=== PATIENT | female | born 1975 | race Caucasian/White ===

== ENCOUNTER 2017-07-18 21:12 | Emergency (ER) | payer MEDICAID ==
[~2017-07-18] VITALS: Ht 167.6 cm; Wt 99.7 kg
[~2017-07-18 21:12] MED LIST: ALBU1.25 NEB; ASEN10TA9 PO; CYCL-259 PO; DIAZ10TA PO; HYDR50CA PO; IBUP100O23 PO; LORA-445; LORA-446 PO; MOME13HF INH; ONDA4TAB7 PO; PHEN100C PO; QUET50TA5 PO; RANI150C PO; TRIA0.2576 PO; ZOLP-413 PO
[2017-07-18] MEDS ORDERED: SODIUM CHLORIDE 0.9% 1,000ML IVBOLUS ONE (21:30)
[2017-07-18] MEDS ORDERED: PLEASE ENTER HEIGHT AND WEIGHT MC SCH (21:30)
[2017-07-18] MEDS ORDERED: ONDANSETRON 2MG/ML, 2ML IVPush ONE (21:30)
[2017-07-18] MEDS ORDERED: ONDANSETRON 2MG/ML, 2ML ONE (21:32)
[2017-07-18 21:49] LABS: HEMATOCRIT 43.8 % (34.6-47.8); HEMOGLOBIN 14.8 g/dL (11.7-16.4); WHITE BLOOD COUNT 6.6 x10^3/uL (3.4-10)
[2017-07-18 22:01] LABS: BLOOD UREA NITROGEN 10 mg/dL (7-18)
[2017-07-18 22:02] LABS: ASPARTATE AMINO TRANSFERASE 17 U/L (15-37)
[2017-07-18 22:25] LABS: IS PT STATUS REG ER OR PRE ER? YES
[2017-07-18] MEDS ORDERED: KETOROLAC 30 MG/1 ML ONE (22:39)
[2017-07-18] MEDS ORDERED: KETOROLAC 30 MG/1 ML IVPush ONE (23:00)
[2017-07-18 23:18] VITALS: BP 103/55
== END 2017-07-18 23:21 | disposition home or self-care (01) ==
LOC: ED 23:14
DX: R07.89 Other chest pain (principal); R05 Cough; R19.7 Diarrhea, unspecified; J45.909 Unspecified asthma, uncomplicated; F43.10 Post-traumatic stress disorder, unspecified; F31.9 Bipolar disorder, unspecified; Z88.0 Allergy status to penicillin; Z88.1 Allergy status to other antibiotic agents; Z88.2 Allergy status to sulfonamides; Z88.5 Allergy status to narcotic agent; Z88.8 Allergy status to other drugs, medicaments and biological substances; Z91.040 Latex allergy status
CPT/HCPCS: 36415; 71010; 80053; 81003; 83690; 84484; 85025; 93005; 96361; 96374; 96375; 99285; J1885; J2405; J7030

== ENCOUNTER 2018-02-18 20:27 | Emergency (ER) | payer MEDICAID ==
[~2018-02-18] VITALS: Ht 167.6 cm; Wt 103.5 kg
[2018-02-18] MEDS ORDERED: METOCLOPRAMIDE 5 MG/ML, 2ML IVPush ONE (21:00)
[2018-02-18] MEDS ORDERED: DIPHENHYDRAMINE 50 MG/ML, 1ML IVPush ONE (21:00)
[2018-02-18] MEDS ORDERED: KETOROLAC 30 MG/1 ML IVPush ONE (21:00)
[2018-02-18] MEDS ORDERED: SODIUM CHLORIDE FLUSH 10ML SYR IVF ONE (21:00)
[2018-02-18] MEDS ORDERED: ALBU6.7H INH (21:02)
[2018-02-18] MEDS ORDERED: RANI150T4 PO (21:02)
[2018-02-18] MEDS ORDERED: RISP1TAB3 PO (21:02)
[2018-02-18] MEDS ORDERED: CLON2TAB PO (21:02)
[2018-02-18] MEDS ORDERED: FLUR30CA3 PO (21:02)
[2018-02-18] MEDS ORDERED: KETOROLAC 30 MG/1 ML ONE (21:07)
[2018-02-18] MEDS ORDERED: METOCLOPRAMIDE 5 MG/ML, 2ML ONE (21:07)
[2018-02-18] MEDS ORDERED: DIPHENHYDRAMINE 50 MG/ML, 1ML ONE (21:07)
[2018-02-18] MEDS ORDERED: ALBUTEROL/IPRATROPIUM 2.5MG/0.5MG, 3 ML ONE (21:15)
[2018-02-18 21:30] LABS: BASOPHILS # (AUTO) 0.02 x10^3/uL (0-0.1); BASOPHILS % (AUTO) 0 % (0-1); EOSINOPHILS % (AUTO) 0 % (1-7); LYMPHOCYTES # (AUTO) 1.65 x10^3/uL (1-3.4); LYMPHOCYTES % (AUTO) 14 % (22-44); MD NO; MEAN CORPUSCULAR HEMOGLOBIN 29.3 pg (27.0-34.8); MEAN CORPUSCULAR VOLUME 88.8 fL (80-100); MEAN PLATELET VOLUME 9.4 fL (7.4-10.4); MONOCYTES # (AUTO) 1.04 x10^3/uL (0.2-0.8); MONOCYTES % (AUTO) 9 % (2-9); NEUTROPHILS # (AUTO) 9.13 x10^3/uL (1.8-6.8); NEUTROPHILS % (AUTO) 77 % (42-75); PLATELET COUNT 209 x10^3/uL (130-400); RED BLOOD COUNT 4.69 x10^6/uL (3.82-5.3); RED CELL DISTRIBUTION WIDTH 13.4 % (9.6-15.2)
[2018-02-18] MEDS ORDERED: ALBUTEROL/IPRATROPIUM 2.5MG/0.5MG, 3 ML NPPB ONE (21:30)
[2018-02-18 21:38] LABS: INTERNATIONAL NORMALIZED RATIO 0.97 (0.93-1.1)
[2018-02-18] MEDS ORDERED: BENZONATATE 100 MG CAPSULE ONE (21:39)
[2018-02-18 21:42] LABS: ALANINE AMINOTRANSFERASE 21 U/L (12-78); ALBUMIN 3.6 g/dL (3.4-5.0); ANION GAP 7 mmol/L (5-15); CALCIUM 8.8 mg/dL (8.5-10.1); CHLORIDE 109 mmol/L (98-107); CREATININE 0.82 mg/dL (0.55-1.02)
[2018-02-18 21:44] LABS: ALKALINE PHOSPHATASE 61 U/L (45-117); BILIRUBIN,TOTAL 0.2 mg/dL (0.2-1.0); TOTAL PROTEIN 7.2 g/dL (6.4-8.2)
[2018-02-18] MEDS ORDERED: BENZONATATE 100 MG CAPSULE PO ONE (22:00)
[2018-02-18 22:49] VITALS: BP 135/82
== END 2018-02-18 22:49 | disposition home or self-care (01) ==
LOC: ED 21:23
DX: J44.1 Chronic obstructive pulmonary disease with (acute) exacerbation (principal); J18.1 Lobar pneumonia, unspecified organism; F43.10 Post-traumatic stress disorder, unspecified
CPT/HCPCS: 36415; 71045; 80053; 83605; 85025; 85610; 85730; 87040; 93005; 94640; 96374; 96375; 99285; J1200; J1885; J2765; J7620

== ENCOUNTER → 2018-09-22 | Outpatient (CLI) | payer MEDICAID ==
[~2018-09-22] MED LIST changes: +ALBU6.7H INH; +ALPR2TAB2 PO; +CHOL200074 PO; +CLON2TAB PO; +FLUR30CA3 PO; +IBUP-1222 PO; -IBUP100O23 PO; +IBUP100O24 PO; +RANI150T4 PO; +RISP1TAB3 PO; +symbicort INH
== END | disposition home or self-care (01) ==
LOC: STAR 09:19
PROVIDERS: ATTEND Obstetrics & Gynecology Female Pelvic Medicine and Reconstructive Surgery
DX: Z01.818 Encounter for other preprocedural examination (principal); R10.2 Pelvic and perineal pain; N39.3 Stress incontinence (female) (male); N81.10 Cystocele, unspecified; N81.6 Rectocele
CPT/HCPCS: 93005

== ENCOUNTER 2018-09-29 08:26 | Day surgery (SDC) | payer MEDICAID ==
[2018-09-22 10:05] VITALS: BP 129/86
[~2018-09-29] VITALS: Ht 167.6 cm; Wt 103.4 kg
[~2018-09-29 08:26] MED LIST changes: +BUPIVACAINE/PF-EPI 0.25% 1:200K ONE; +NEOMY/POLYMYXIN B GU IRR. 1 ML IRRIG ONE
[2018-09-29] MEDS ORDERED: LACTATED RINGERS 1,000 ML IV SCH (09:18)
[2018-09-29 09:23] VITALS: BP 129/86
[2018-09-29] MEDS ORDERED: LIDOCAINE-MPF 1%, 2ML INFIL ONE (09:30)
[2018-09-29] MEDS ORDERED: FENTANYL PF 250 MCG/5ML ONE (10:02)
[2018-09-29] MEDS ORDERED: MIDAZOLAM 1 MG/ML, 2ML ONE (10:02)
[2018-09-29] MEDS ORDERED: PROPOFOL 10 MG/ML, 20ML ONE (10:47)
[2018-09-29] MEDS ORDERED: CEFAZOLIN 1,000 MG ONE (10:47)
[2018-09-29] MEDS ORDERED: ROCURONIUM 10MG/ML,5ML ONE (10:47)
[2018-09-29] MEDS ORDERED: SUCCINYLCHOLINE 20 MG/ML, 10ML ONE (10:47)
[2018-09-29] MEDS ORDERED: OXYcodone 5 MG/5 ML ORAL.SOL UDC ONE (11:51)
[2018-09-29] MEDS ORDERED: hydrALAzine 20 MG/ML, 1ML IV PRN (12:00)
[2018-09-29] MEDS ORDERED: ONDANSETRON ODT 8 MG PO PRN (12:00)
[2018-09-29] MEDS ORDERED: PROMETHAZINE 12.5 MG SUPP PR PRN (12:00)
[2018-09-29] MEDS ORDERED: FENTANYL PF 100 MCG/2ML IV PRN (12:00)
[2018-09-29] MEDS ORDERED: ONDANSETRON 2MG/ML, 2ML IV PRN (12:00)
[2018-09-29] MEDS ORDERED: OXYcodone 5 MG/5 ML ORAL.SOL UDC PO PRN (12:00)
[2018-09-29] MEDS ORDERED: HYDROmorphone 1 MG/ML, 1ML IV PRN (12:00)
[2018-09-29] MEDS ORDERED: LABETALOL 5MG/ML, 20ML IV PRN (12:00)
[2018-09-29] MEDS ORDERED: ONDANSETRON 2MG/ML, 2ML ONE (12:10)
== END 2018-09-29 15:00 | disposition home or self-care (01) ==
LOC: OUT 08:26
PROVIDERS: ATTEND Obstetrics & Gynecology Female Pelvic Medicine and Reconstructive Surgery
DX: N81.89 Other female genital prolapse (principal); N39.46 Mixed incontinence; N32.81 Overactive bladder; N81.5 Vaginal enterocele; G43.909 Migraine, unspecified, not intractable, without status migrainosus; F17.210 Nicotine dependence, cigarettes, uncomplicated; F19.90 Other psychoactive substance use, unspecified, uncomplicated; F41.9 Anxiety disorder, unspecified; J45.909 Unspecified asthma, uncomplicated; Z87.39 Personal history of other diseases of the musculoskeletal system and connective tissue; Z90.49 Acquired absence of other specified parts of digestive tract; Z90.710 Acquired absence of both cervix and uterus; Z98.890 Other specified postprocedural states; Z90.722 Acquired absence of ovaries, bilateral
CPT/HCPCS: 57265; 57282; 57288; 57295; C1781; J0330; J0690; J2250; J2405; J2704; J3010; J7120

== ENCOUNTER 2021-05-19 10:57 | Emergency (ER) | payer MEDICAID ==
[~2021-05-19] VITALS: Ht 167.6 cm; Wt 104.0 kg
[~2021-05-19 10:57] MED LIST changes: -ALBU6.7H INH; +ALBU6.7H8 INH; -BUPIVACAINE/PF-EPI 0.25% 1:200K ONE; -CYCL-259 PO; +CYCL10TA2 PO; -IBUP100O24 PO; -NEOMY/POLYMYXIN B GU IRR. 1 ML IRRIG ONE; -RISP1TAB3 PO; +RISP1TAB90 PO; +[UNRECOGNIZED DRUG - CODE] PO
--- NOTE | 2021-05-19 11:06 | NUR ---
PT BIB [facility], STATES RT LOW BACK PAIN. PT STATES SEEN AT RECENTLY, HAD XRAY. PT AMAITING ERMD ASSESSMENT.
[2021-05-19] MEDS ORDERED: HYDROcodone/APAP 10/325 MG TABLET PO ONE (11:30)
[2021-05-19] MEDS ORDERED: KETOROLAC 30 MG/1 ML IM ONE (11:30)
[2021-05-19] MEDS ORDERED: ONDANSETRON ODT 4 MG PO ONE (11:30)
[2021-05-19] MEDS ORDERED: KETOROLAC 30 MG/1 ML ONE (11:41)
[2021-05-19] MEDS ORDERED: ONDANSETRON ODT 4 MG ONE (11:41)
[2021-05-19] MEDS ORDERED: HYDROcodone/APAP 10/325 MG TABLET ONE (11:42)
--- NOTE | 2021-05-19 12:56 | NUR ---
PT STATES PAIN DECREASED, MEDICATIONS EFFECTIVE. PT OK FOR D/C PER ERMD. PT GIVEN D/C INSTRUCTIONS, VERBALIZED UUNDERSTANDING.
[2021-05-19 12:57] VITALS: BP 143/81
== END 2021-05-19 12:59 | disposition home or self-care (01) ==
LOC: ED 11:36
DX: S39.012A Strain of muscle, fascia and tendon of lower back, initial encounter (principal); J44.9 Chronic obstructive pulmonary disease, unspecified; G40.909 Epilepsy, unspecified, not intractable, without status epilepticus; F17.200 Nicotine dependence, unspecified, uncomplicated; Z90.49 Acquired absence of other specified parts of digestive tract; X58.XXXA Exposure to other specified factors, initial encounter; Y93.89 Activity, other specified; Y92.89 Other specified places as the place of occurrence of the external cause; Y99.8 Other external cause status
CPT/HCPCS: 72110; 96372; 99283; J1885; Q0162